=== PATIENT | male | born 1960 | race Caucasian/White ===

== ENCOUNTER → 2019-06-25 | Outpatient (CLI) | payer BC ==
[2015-11-27 23:42] VITALS: BP 126/95
[~2019-06-25] MED LIST: CILO100T PO; ENOX100D SQ; FINA5TAB4 PO; SILD100T PO; SIMV40TA18 PO; TRAM50TA PO; WARF-78 PO; WARF7.5T48 PO
--- NOTE | 2019-06-25 15:17 | RAD ---
Bilateral lower extremity venous duplex study 06/25/2019 1:00 PM Clinical History: History of DVT, bilateral lower extremity pain Comparison: Lower extremity duplex ultrasound July 12, 2015 Technique: Using a combination of real time ultrasound imaging and color-flow and pulse Doppler imaging techniques along with graded compression and augmentation, duplex evaluation of the deep venous system of the both lower extremities was performed. Multiple images were obtained. Findings: There is eccentric, echogenic chronic appearing DVT within the left superficial femoral vein extending to the proximal most popliteal vein.. Remaining deep veins on the left are patent. The appearance is similar to comparison exam and a most likely reflects chronic thrombus. No evidence of deep venous thrombosis is identified on the right. 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 No definitive evidence of acute deep venous thrombosis is identified Electronically signed by: Juvenal Whiting MD (06/25/2019 3:14 PM) [id number]
--- NOTE | 2019-06-25 15:43 | RAD ---
Bilateral lower extremity arterial duplex ultrasound study without comparison for PAD, claudication, bilateral leg pain. TECHNIQUE AND FINDINGS: Real-time grayscale and color and spectral Doppler evaluation of the arteries of lower extremity performed. On the right, there is triphasic flow within the common femoral and deep femoral artery, with absent flow throughout the SFA and popliteal artery. Monophasic parvus tardus flow is seen within the runoff vessels including the dorsalis pedis artery of the foot. On the left, there is triphasic flow within the common femoral and deep femoral artery, and there is absence of flow throughout the entirety of the SFA, with reconstituted monophasic parvus tardus flow within the popliteal artery, posterior tibial artery, anterior tibial artery, and dorsalis pedis artery of the foot. IMPRESSION: 1. 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 2. Left lung segment SFA occlusion with monophasic flow in the popliteal, posterior tibial, and anterior tibial runoff vessels and dorsalis pedis artery. Electronically signed by: Bashir Treviño MD (06/25/2019 3:40 PM) [id number]
== END | disposition home or self-care (01) ==
LOC: US 14:12
PROVIDERS: ATTEND Physician Assistant
DX: I70.203 Unspecified atherosclerosis of native arteries of extremities, bilateral legs (principal); Z86.718 Personal history of other venous thrombosis and embolism
CPT/HCPCS: 93925; 93970